=== PATIENT | female | born 1960 | race Caucasian/White ===

== ENCOUNTER 2018-02-05 09:00 | Day surgery (SDC) | payer BC ==
--- NOTE | 2018-01-31 09:15 | RAD REPORT ---
EXAM DESCRIPTION: RAD - Chest Pa And Lat (2 Views) - 01/31/2018 9:09 am CLINICAL HISTORY: Hypertension, preop assessment. COMPARISON: None. FINDINGS: The lungs are clear. The heart is normal in size. No displaced fractures. IMPRESSION: No acute or concerning finding suspected.
[2018-01-31 09:34] LABS: Urine Appearance CLOUDY; Urine Bilirubin NEGATIVE (NEG); Urine Blood 1+ (NEG); Urine Color YELLOW; Urine Glucose NEGATIVE (NEG); Urine Protein NEGATIVE (NEG); Urine Specific Gravity 1.015 (1.005-1.030); Urine Urobilinogen 0.2 mg/dL (0.2-1.0); Urine pH 7.5 (5.0-7.0)
[2018-01-31 09:36] LABS: Urine Microscopic Reflex ORDER UMIC
[2018-01-31 09:37] LABS: Protime INR 0.97
[2018-01-31 09:43] LABS: Absolute Lymphocytes (CBC) 2.1 K/uL (0.7-4.9); Absolute Monocytes 0.4 K/uL (0.1-1.3); Absolute Neutrophil 2.5 K/uL (1.8-8.0); Basophils % 1.1 % (0-1.3); Eosinophils % 3.6 % (0-4.4); Hematocrit 40.6 % (36.0-45.0); Lymphocytes % 39.3 % (15.3-44.8); MCH 28.8 pg (27.0-35.0); MCV 86.7 fL (80-100); Monocytes % 7.8 % (3.3-12.3); RBC Red Blood Cell Count 4.68 M/uL (3.86-4.86)
--- NOTE | 2018-01-31 10:03 | EKG ---
Test Date: 2018-01-31 Test Time: 08:56:31 [employer] Operator: AGUILA MEASUREMENT RESULTS: Intervals: Rate: 64 PA: 144 QRSD: 90 QT: 448 QTc: 462 [place]: P: 24 PA: 144 QRS: 22 T: 7 INTERPRETIVE STATEMENTS: Normal sinus rhythm Septal infarct, age undetermined Abnormal ECG No previous ECG available for comparison Electronically Signed On 01-31-18 10:02:48 CDT by Harlan eLach
[2018-01-31 10:08] LABS: Phosphorus 3.1 mg/dL (2.5-4.3); Uric Acid 5.2 mg/dL (2.6-8.0)
[2018-01-31 10:17] LABS: Potassium 3.5 mEq/L (3.6-5.0)
[2018-01-31 10:25] LABS: Urine Amorphous Sediment 2+ /HPF (NONE SEEN); Urine Bacteria <20 /HPF (<20); Urine RBC 20-50 /HPF (NONE SEEN)
[2018-01-31 10:26] LABS: Urine Culture Reflex Order NOT NEEDED
--- OUTSIDE RECORDS SUMMARY | 2018-02-05 09:03 | XMS REPORT | Clinical Summary ---
:1960 Author Organization [facility] Address [address] [place] [address] Care Team Providers Name Role Phone Asked, No Pcp Primary Care Provider Unavailable Allergies Not on File Current Medications Not on file Active Problems Not on file Encounters Date Type Specialty Care Team Description 11/22/2017 Hospital Encounter Radiology Kenia Marinelli Nontoxic multinodphyllis Mcdaniels MD goiter 11/05/2017 Transcribe Orders Access Kenia Marinellioxic kayden Mcdainels MD goiter (Primary Dx) after 02/04/2017 Social History Tobacco Use Types Packs/Day Years Used Date Never Assessed Sex Assigned at Date Recorded Not on file Last Filed Vital Signs Not on file Plan of Treatment Health Maintenance Due Date Last Done Comments PAP SMEAR 1982 COLONOSCOPY 2011 MAMMOGRAM 2011 SHINGRIX VACCINE (#1) 2011 INFLUENZA VACCINE 05/01/2018 Results US Thyroid (11/22/2017 2:00 PM) Specimen Performing Laboratory [facility] [address] [place] [address] Narrative EXAMINATION:US THYROID 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 TECHNIQUE: Transverse and longitudinal sonographic images of the thyroid gland were obtained. Grayscale and color Doppler images were also obtained. IMPRESSION: Small TR4 nodules in the right and left lobes. No additional imaging or follow-up advised given their size. Please refer to below guidelines. FINDINGS: Thyroid is normal in size. Right lobe measures 4.7 x 1.8 x 1.7 cm, left lobe 4.0 x 1.6 x 1.4 cm, and the isthmus 0.3 cm in thickness. Thyroid echogenicity and echotexture are normal. NODULE: 1 *Location: Posterior and inferior right lobe *Size: 1.0 x 0.9 x 0.5 cm *Composition: Cystic or almost completely cystic - 0 pts *Echogenicity: Anechoic - 0 pts *Shape: Hfokm-pels-ruut - 0 pts *Margin: Smooth - 0 pts *Echogenic foci: Macrocalcifications - 1 pt TOTAL POINTS: 1 NODULE: 2 *Location: Superior right lobe *Size: 0.5 x 0.4 x 0.3 cm *Composition: Solid or almost entirely solid - 2 pts *Echogenicity: Hypoechoic - 2 pts *Shape: Hvpfx-imsy-dwzq - 0 pts *Margin: Smooth - 0 pts *Echogenic foci: None or large comet-tail artifacts - 0 pts TOTAL POINTS: 4 NODULE: 3 *Location: Anterior mid to upper left lobe *Size: 0.7 x 0.5 x 0.4 cm *Composition: Solid or almost entirely solid - 2 pts *Echogenicity: Hypoechoic - 2 pts *Shape: Usdli-xrya-madi - 0 pts *Margin: Smooth - 0 pts *Echogenic foci: None or large comet-tail artifacts - 0 pts TOTAL POINTS: 4 ACR TI-RADS GUIDELINES 2017 *0 points: TR1. Benign. No FNA *2 points:TR2. Not suspicious. No FNA *3 points: TR3. Mildly suspicious. FNA if > or=2.5 cm. Follow if > or=1.5 cm *4-6 points: TR4. Moderately suspicious. FNA if > or=1.5 cm. Follow if > or =1 cm *7 or more points: TR5. Highly suspicious. FNA if > or=1 cm. Follow if > or =0.5 cm Follow-up of TR3-TR5 nodules that do not meet biopsy criteria: *TR3: 1,3 and 5 years *TR4: 1,2,3 and 5 years *TR5: 1,2,3,4 and 5 years Any nodule that is stable for 5 years regardless of TI-RADS level is considered benign Any nodule whose TI-RADS level increases should have 1 year followup regardless of initial level DESCRIPTION of CRITERIA: COMPOSITION (choose 1): *Spongiform: Composed predominantly (greater than 50%) of small cystic spaces. Do not add further points for other categories *Mixed cystic and solid: Assign points for predominant solid component *Assign 2 points if composition cannot be determined because of calcification ECHOGENICITY (choose 1): *Anechoic: Applies to cystic or almost completely cystic nodules *Hyperechoic/isoechoic/hypoechoic: Compared to adjacent parenchyma *Very hypoechoic: More hypoechoic than strap muscles *Assign 1 point if echogenicity cannot be determined SHAPE (choose 1): *Vybngj-ncvo-wdxs: Should be assessed on a transverse image with measurements parallel to sound beam for height and perpendicular to sound beam for width. This can usually be assessed by visual inspection. MARGIN (choose 1): *Lobulated: Protrusions into adjacent tissue. *Irregular: Jagged, spiculated, or sharp angles *Extrathyroidal extension: Obvious invasion equals malignancy *Assign 0 points if margin cannot be determined ECHOGENIC FOCI (choose 1 or more): *Large comet-tail artifacts: V-shaped, > 1 mm, or in cystic components *Macrocalcifications: Cause acoustic shadowing *Peripheral: Complete or incomplete along margin *Punctate echogenic foci: May have small, comet-tail artifact If there are multiple nodules, only the highest (up to 4) scoring nodules should be reported and followed For nodules that meet TI-RADS FNA criteria, only the TWO highest scoring nodules should be sampled Significant enlargement is defined as a 20% increase in at least 2 nodular dimensions and a minimal increase of 2 mm, or a 50% or greater increase in volume Thank you for allowing us to participate in the care of your patient. 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 TECHNIQUE: Transverse and longitudinal sonographic images of the thyroid gland were obtained. Grayscale and color Doppler images were also obtained. IMPRESSION: Small TR4 nodules in the right and left lobes. No additional imaging or follow-up advised given their size. Please refer to below guidelines. FINDINGS: Thyroid is normal in size. Right lobe measures 4.7 x 1.8 x 1.7 cm, left lobe 4.0 x 1.6 x 1.4 cm, and the isthmus 0.3 cm in thickness. Thyroid echogenicity and echotexture are normal. NODULE: 1 * Location: Posterior and inferior right lobe * Size: 1.0 x 0.9 x 0.5 cm * Composition: Cystic or almost completely cystic - 0 pts * Echogenicity: Anechoic - 0 pts * Shape: Prcpz-uylm-auxf - 0 pts * Margin: Smooth - 0 pts * Echogenic foci: Macrocalcifications - 1 pt TOTAL POINTS: 1 NODULE: 2 * Location: Superior right lobe * Size: 0.5 x 0.4 x 0.3 cm * Composition: Solid or almost entirely solid - 2 pts * Echogenicity: Hypoechoic - 2 pts * Shape: Vhblf-kgcn-guty - 0 pts * Margin: Smooth - 0 pts * Echogenic foci: None or large comet-tail artifacts - 0 pts TOTAL POINTS: 4 NODULE: 3 * Location: Anterior mid to upper left lobe * Size: 0.7 x 0.5 x 0.4 cm * Composition: Solid or almost entirely solid - 2 pts * Echogenicity: Hypoechoic - 2 pts * Shape: Ctlhl-sxxj-frvq - 0 pts * Margin: Smooth - 0 pts * Echogenic foci: None or large comet-tail artifacts - 0 pts TOTAL POINTS: 4 ACR TI-RADS GUIDELINES 2017 * 0 points: TR1. Benign. No FNA * 2 points: TR2. Not suspicious. No FNA * 3 points: TR3. Mildly suspicious. FNA if > or=2.5 cm. Follow if > or =1.5 cm * 4-6 points: TR4. Moderately suspicious. FNA if > or=1.5 cm. Follow if > or= 1 cm * 7 or more points: TR5. Highly suspicious. FNA if > or=1 cm. Follow if > or= 0.5 cm Follow-up of TR3-TR5 nodules that do not meet biopsy criteria: * TR3: 1,3 and 5 years * TR4: 1,2,3 and 5 years * TR5: 1,2,3,4 and 5 years Any nodule that is stable for 5 years regardless of TI-RADS level is considered benign Any nodule whose TI-RADS level increases should have 1 year followup regardless of initial level DESCRIPTION of CRITERIA: COMPOSITION (choose 1): * Spongiform: Composed predominantly (greater than 50%) of small cystic spaces. Do not add further points for other categories * Mixed cystic and solid: Assign points for predominant solid component * Assign 2 points if composition cannot be determined because of calcification ECHOGENICITY (choose 1): * Anechoic: Applies to cystic or almost completely cystic nodules * Hyperechoic/isoechoic/hypoechoic: Compared to adjacent parenchyma * Very hypoechoic: More hypoechoic than strap muscles * Assign 1 point if echogenicity cannot be determined SHAPE (choose 1): * Czmiyg-sqql-ejtp: Should be assessed on a transverse image with measurements parallel to sound beam for height and perpendicular to sound beam for width. This can usually be assessed by visual inspection. MARGIN (choose 1): * Lobulated: Protrusions into adjacent tissue. * Irregular: Jagged, spiculated, or sharp angles * Extrathyroidal extension: Obvious invasion equals malignancy * Assign 0 points if margin cannot be determined ECHOGENIC FOCI (choose 1 or more): * Large comet-tail artifacts: V-shaped, > 1 mm, or in cystic components * Macrocalcifications: Cause acoustic shadowing * Peripheral: Complete or incomplete along margin * Punctate echogenic foci: May have small, comet-tail artifact If there are multiple nodules, only the highest (up to 4) scoring nodules should be reported and followed For nodules that meet TI-RADS FNA criteria, only the TWO highest scoring nodules should be sampled Significant enlargement is defined as a 20% increase in at least 2 nodular dimensions and a minimal increase of 2 mm, or a 50% or greater increase in volume Thank you for allowing us to participate in the care of your patient. [id number] after 02/04/2017 Insurance Payer Benefit Plan / Group Subscriber ID Type Phone Address [employer] [facility] OUT OF STATE xxxxxxxxxxxx PPO Home: [address] [place], [place] [phone] [place], [place] [address]
[2018-02-05] MEDS ORDERED: Ringers Lactate 1,000 ML IV ONE ×2 (09:18→12:28)
[2018-02-05] MEDS ORDERED: PROPOFOL 200 MG/20 ML VIAL IV ONE (09:33)
[2018-02-05] MEDS ORDERED: LIDOCAINE 2% MPF 5 ML VIAL ONE (09:34)
[2018-02-05] MEDS ORDERED: MIDAZOLAM HCL 2 MG/2 ML INJ ONE ×2 (09:34→09:56)
[2018-02-05] MEDS ORDERED: FENTANYL CITR 100 MCG/2 ML ONE (09:34)
[2018-02-05] MEDS ORDERED: ONDANSETRON HCL 40 MG/20 ML VIAL ONE (09:34)
[2018-02-05] MEDS ORDERED: Gentamicin Inj 240 MG in NA CHLORIDE 0.9% 100 ML IV SCH (10:00)
[2018-02-05] MEDS ORDERED: ONDANSETRON 4 MG/2 ML VIAL ONE (10:05)
[2018-02-05] MEDS ORDERED: MEPERIDINE HCL 25 MG/0.5 ML ONE ×2 (11:13→11:24)
[2018-02-05] MEDS ORDERED: CEFAZOLIN/SWI 1gm 1 GM/10 ML SYR ONE (12:28)
== END 2018-02-05 12:08 | disposition home or self-care (01) ==
LOC: OR 09:00
PROVIDERS: ATTEND Urology
PROC: 0TF4XZZ Fragmentation in Left Kidney Pelvis, External Approach (ICD-10-PCS; principal; 2018-02-05 10:00)
DX: N20.0 Calculus of kidney (principal); I10 Essential (primary) hypertension; E78.5 Hyperlipidemia, unspecified; Z82.49 Family history of ischemic heart disease and other diseases of the circulatory system; Z80.3 Family history of malignant neoplasm of breast
CPT/HCPCS: 36415; 50590; 71046; 80048; 81003; 81015; 84100; 84550; 85025; 85610; 85730; 87077; 87086; 87088; 87186; 93005; J0690; J1580; J2175; J2250; J2405; J3010